=== PATIENT | female | born 1975 | race Hispanic/Latino ===

== ENCOUNTER 2017-09-04 06:47 | Inpatient (IN) | payer BC ==
[~2017-09-04 06:47] MED LIST: APRESOLINE IV PRN; MYLICON PO PRN; REGLAN IV PRN; ZOFRAN IV PRN
[2017-09-04] MEDS ORDERED: TRANSDERM-SCOP TD SCH (07:00)
[2017-09-04] MEDS ORDERED: FLAGYL 500 MG/100 ML 500 MG/100 ML BAG IV NR (07:00)
[2017-09-04] MEDS ORDERED: ANCEF/STERILE WATER 2 GM/20 ML 2 GM/20 ML SYRINGE IV NR (07:00)
[2017-09-04] MEDS ORDERED: LOVENOX SUB-Q NR (07:00)
[2017-09-04] MEDS ORDERED: DECADRON ONE (07:13)
[2017-09-04] MEDS ORDERED: ZEMURON IV ONE (07:13)
[2017-09-04] MEDS ORDERED: QUELICIN ONE (07:13)
[2017-09-04] MEDS ORDERED: ZOFRAN ONE (07:13)
[2017-09-04] MEDS ORDERED: REGLAN ONE (07:13)
[2017-09-04] MEDS ORDERED: DIPRIVAN 10 MG/ML IV ONE (07:14)
[2017-09-04] MEDS ORDERED: SUBLIMAZE ONE ×2 (07:14→10:00)
[2017-09-04] MEDS ORDERED: XYLOCAINE MPF 2% ONE (07:14)
--- NOTE | 2017-09-04 07:17 | Anesthesia Consultation ---
Anesthesia Consult and Med Hx Date of service: 09/04/17 - Airway Anesthetic Teeth Evaluation: Good ROM Head & Neck: Adequate Mental/Hyoid Distance: Adequate Mallampati Class: Class I Intubation Access Assessment: Good - Pulmonary Exam CTA: Yes - Cardiac Exam Cardiac Exam: RRR - Pre-Operative Health Status ASA Pre-Surgery Classification: ASA3 Proposed Anesthetic Plan: General - Pulmonary Hx Smoking: Yes (LIKE SMOKER FROM AGE 15, QUIT FOR SURGERY) Hx Sleep Apnea: No (R/O) - Central Nervous System Hx Back Pain: Yes Hx Psychiatric Problems: Yes - Other Systems Hx Alcohol Use: Yes (RARELY) Hx Substance Use: No Hx Cancer: No Hx Obesity: Yes (morbid)
--- NOTE | 2017-09-04 07:18 | Anesthesia Day of Surgery ---
Anesthesia Day of Surgery - Day of Surgery Patient Examined: Yes Patient H&P Reviewed: Yes Patient is NPO: Yes
[2017-09-04] MEDS: LACTATED RINGERS 1,000 ML IV SCH ×2 (08:00→20:09)
[2017-09-04] MEDS ORDERED: PEPCID IV NR (08:00)
[2017-09-04] MEDS ORDERED: VERSED IV NR (08:00)
[2017-09-04] MEDS ORDERED: XYLOCAINE 1% 20 mL ONE (08:23)
[2017-09-04] MEDS ORDERED: MARCAINE 0.5% 30 ML INFILTRATI ONE (08:23)
[2017-09-04] MEDS ORDERED: MARCAINE 0.5% INFILTRATI ONE (08:35)
[2017-09-04] MEDS ORDERED: XYLOCAINE 1% 20 mL INFILTRATI ONE (08:35)
[2017-09-04] MEDS ORDERED: NACL 0.9% IR ONE (08:35)
[2017-09-04] MEDS ORDERED: LACTATED RINGERS 1,000 ML ONE (09:06)
[2017-09-04] MEDS ORDERED: MORPHINE ONE (10:39)
[2017-09-04] MEDS ORDERED: ROBINUL ONE (10:56)
[2017-09-04] MEDS ORDERED: NEOSTIGMINE ONE (10:56)
[2017-09-04] MEDS: MORPHINE IV PRN ×4 (11:32→18:21)
--- NOTE | 2017-09-04 12:38 | Post Anesthesia Evaluation ---
- Post Anesthesia Evaluation Patient Participated: Yes Airway Patent: Yes Stable Respiratory Function: Yes Temp > 96.8F: Yes Pain Manageable: Yes Adequeate Hydration: Yes Anesthesia Complications: No
[2017-09-04 13:11] LABS: Bilirubin,Urine NEG (Negative); Blood,Urine NEG (Negative); Color,Urine Yellow (Yellow); Nitrite,Urine NEG (Negative); Protein,Urine <15 mg/dL mg/dL (Negative); RBC,Urine < 1.0 /HPF (0.0-6.0); Urobilinogen,Urine < 2.0 mg/dL (<2.0)
[2017-09-04 13:21] LABS: WBC,Urine < 1.0 /HPF (0.0-6.0)
[2017-09-04] MEDS: NORCO PO PRN (22:01)
[2017-09-04] MEDS: WELLBUTRIN PO SCH (22:03)
[2017-09-05] MEDS: MORPHINE IV PRN ×3 (02:07→10:46)
[2017-09-05 06:34] LABS: Basophils % (Auto) 0.3 % (0.0-1.8); Eosinophils % (Auto) 0.1 % (0.0-4.3); Hematocrit 38.6 % (30.3-42.9); Lymphocytes # (Auto) 0.9 K/mm3 (1.2-5.4); Lymphocytes % (Auto) 11.4 % (13.4-35.0); Mean Corpuscular HGB Conc 34 % (30-34); Mean Corpuscular Hemoglobin 31 pg (28-32); Mean Corpuscular Volume 91 fl (79-97); Monocytes # (Auto) 0.7 K/mm3 (0.0-0.8); Monocytes % (Auto) 8.9 % (0.0-7.3); Platelet Count 220 K/mm3 (140-440); Red Blood Count 4.23 M/mm3 (3.65-5.03); Red Cell Distribution Width 13.5 % (13.2-15.2)
[2017-09-05 06:52] LABS: Alanine Aminotransferase 38 units/L (7-56); Albumin 3.3 g/dL (3.9-5); BUN/Creatinine Ratio 16; Blood Urea Nitrogen 11 mg/dL (7-17); Calcium 8.4 mg/dL (8.4-10.2); Hemolysis Index 0
[2017-09-05] MEDS ORDERED: LOVENOX SUB-Q SCH (10:00)
--- NOTE | 2017-09-05 10:35 | Progress Note ---
Assessment and Plan S/P Laprascopic GJ revision and Biliopancreatic Limb lengthening - Continue clear liquids and protein intake of 60g daily - Maintain adequate water intake of 64oz daily - Continue ambulation - Incentive Spirometry use every hour - Keep incisional wounds clean and dry - F/u wound clinic - D/C home Subjective Patient Reports: Positive: flatus, no bowel movement Narrative: No acute events overnight. Pt still complaining of pain in her abdomen but med medication helps. Overall feels better compared to last night. No BM, passing flatus. Ambulating every few hours with no difficulties. Denies N/V. Consumed some fluids this morning but overall decreased appetite. Objective Vital Signs - 12hr 09/05/17 09/05/17 09/05/17 01:14 03:58 08:44 Temperature 99.2 F 98.6 F Pulse Rate 71 62 Respiratory 16 16 Rate Blood Pressure 108/52 114/63 Blood Pressure [Right] O2 Sat by Pulse 97 100 100 Oximetry 09/05/17 09:00 Temperature 98.6 F Pulse Rate 69 Respiratory 18 Rate Blood Pressure Blood Pressure 109/57 [Right] O2 Sat by Pulse 97 Oximetry - General physical appearance well developed, well nourished, no distress, obese - Eyes normal occular movement - Respiratory normal expansion, normal respiratory effort, clear to auscultation - Abdomen soft, tender, bowel sounds normal, other (incision sites- dry blood. incisional tenderness ) - Integumentary no rash - Neurologic normal coordination - Musculoskeletal normal posture - Psychiatric oriented to time, oriented to person, oriented to place - Labs 09/05/17 05:10 09/05/17 05:10 Diabetes panel 09/05/17 Range/Units 05:10 Sodium 139 (137-145) mmol/L Potassium 4.1 (3.6-5.0) mmol/L Chloride 99.7 (98-107) mmol/L Carbon Dioxide 24 (22-30) mmol/L BUN 11 (7-17) mg/dL Creatinine 0.7 (0.7-1.2) mg/dL Glucose 91 (65-100) mg/dL Calcium 8.4 (8.4-10.2) mg/dL AST 48 H (5-40) units/L ALT 38 (7-56) units/L Alkaline Phosphatase 90 (35-129) units/L Total Protein 6.2 L (6.3-8.2) g/dL Albumin 3.3 L (3.9-5) g/dL Calcium panel 09/05/17 Range/Units 05:10 Calcium 8.4 (8.4-10.2) mg/dL Albumin 3.3 L (3.9-5) g/dL Pituitary panel 09/05/17 Range/Units 05:10 Sodium 139 (137-145) mmol/L Potassium 4.1 (3.6-5.0) mmol/L Chloride 99.7 (98-107) mmol/L Carbon Dioxide 24 (22-30) mmol/L BUN 11 (7-17) mg/dL Creatinine 0.7 (0.7-1.2) mg/dL Glucose 91 (65-100) mg/dL Calcium 8.4 (8.4-10.2) mg/dL Adrenal panel 09/05/17 Range/Units 05:10 Sodium 139 (137-145) mmol/L Potassium 4.1 (3.6-5.0) mmol/L Chloride 99.7 (98-107) mmol/L Carbon Dioxide 24 (22-30) mmol/L BUN 11 (7-17) mg/dL Creatinine 0.7 (0.7-1.2) mg/dL Glucose 91 (65-100) mg/dL Calcium 8.4 (8.4-10.2) mg/dL Total Bilirubin 0.60 (0.1-1.2) mg/dL AST 48 H (5-40) units/L ALT 38 (7-56) units/L Alkaline Phosphatase 90 (35-129) units/L Total Protein 6.2 L (6.3-8.2) g/dL Albumin 3.3 L (3.9-5) g/dL
[2017-09-05] MEDS: WELLBUTRIN PO SCH (10:45)
[2017-09-05] MEDS: LACTATED RINGERS 1,000 ML IV SCH (11:05)
[2017-09-05] MEDS ORDERED: Fluarix Quad 2017-2018(36 MOS+ IM ONE (12:00)
--- NOTE | 2017-09-05 14:00 | Discharge Summary ---
Providers - Providers Date of Admission: 09/04/17 06:47 Date of discharge: 09/05/17 Attending physician: BRYAN MENSAH Hospitalization Reason for admission: Bariatric Surgery Condition: Good Procedures: Laprascopic GJ Revision and Biliopancreatic limb lengthening Hospital course: 42 yo F admitted for Laprascopic GJ revision and Biliopancreatic limb lengthening. Pt tolerated the procedure well. On POD 1 she was Tolerating clear liquids, ambulating, wounds clean and dry, and using incentive spirometer. To be D/C home and f/u for wound check. Her pain was well controlled. No issues prior to discharged. Disposition: DC-01 TO HOME OR SELFCARE Core Measure Documentation - Palliative Care Palliative Care/ Comfort Measures: Not Applicable - Core Measures Any of the following diagnoses?: none Exam - Constitutional Vitals: Temp Pulse Resp BP Pulse Ox 97.6 F 73 18 117/59 100 09/05/17 12:00 09/05/17 12:00 09/05/17 12:00 09/05/17 12:00 09/05/17 12:00 General appearance: Present: no acute distress, well-nourished - EENT ENT: hearing intact - Neck Neck: Present: normal ROM - Respiratory Respiratory effort: normal - Cardiovascular Rhythm: regular Heart Sounds: Present: S1 & S2 - Abdominal General gastrointestinal: Present: soft, tender (Incisional tenderness), normal bowel sounds Plan Activity: other (No heavy lifting over 15lbs for 6 weeks) Weight Bearing Status: Full Weight Bearing Diet: clear liquids, low carbohydrate Wound: keep clean and dry Additional Instructions: F/u for wound check Follow up with: EMETERIO VENEGAS [Other] - 7 Days
[2017-09-05] MEDS: NORCO PO PRN (15:11)
[2017-09-05 16:51] VITALS: BP 115/75
== END 2017-09-05 19:00 | disposition home or self-care (01) | DRG 327 ==
LOC: 3A 06:47 → 3B-SURG 14:32
PROVIDERS: ADMIT Specialist; ATTEND Specialist
PROC: 0DQA4ZZ Repair Jejunum, Percutaneous Endoscopic Approach (ICD-10-PCS; principal; 2017-09-04)
PROC: 0BQT4ZZ Repair Diaphragm, Percutaneous Endoscopic Approach (ICD-10-PCS; 2017-09-04)
PROC: 0DQ64ZZ Repair Stomach, Percutaneous Endoscopic Approach (ICD-10-PCS; 2017-09-04)
PROC: 0D1B4ZH Bypass Ileum to Cecum, Percutaneous Endoscopic Approach (ICD-10-PCS; 2017-09-04)
PROC: 3E0234Z Introduction of Serum, Toxoid and Vaccine into Muscle, Percutaneous Approach (ICD-10-PCS; 2017-09-05)
DX: K91.1 Postgastric surgery syndromes (principal); Z68.41 Body mass index [BMI] 40.0-44.9, adult; K95.89 Other complications of other bariatric procedure; K44.9 Diaphragmatic hernia without obstruction or gangrene; K30 Functional dyspepsia; F32.9 Major depressive disorder, single episode, unspecified; G25.81 Restless legs syndrome; D50.9 Iron deficiency anemia, unspecified; Z23 Encounter for immunization; E66.01 Morbid (severe) obesity due to excess calories; Y83.2 Surgical operation with anastomosis, bypass or graft as the cause of abnormal reaction of the patient, or of later complication, without mention of misadventure at the time of the procedure
CPT/HCPCS: 36415; 80053; 81001; 81025; 82962; 85025; 90686; C9250; J0330; J0690; J1100; J1650; J2250; J2270; J2405; J2704; J2710; J2765; J3010; J7120